=== PATIENT | male | born 1985 | race Caucasian/White ===

== ENCOUNTER 2018-02-24 19:40 | Emergency (ER) | payer SELFPAY ==
[~2018-02-24] VITALS: Ht 188 cm; Wt 83.9 kg
[2018-02-24 19:50] VITALS: BP 133/93
[2018-02-24 21:31] LABS: APPEARANCE,URINE Clear (CLEAR); BILIRUBIN,URINE Negative (NEGATIVE); BLOOD, URINE Negative Ery/uL (NEGATIVE); COLOR,URINE Light yellow (YELLOW); KETONES,URINE Negative (NEGATIVE); LEUKOCYTE ESTERASE ,URINE Negative (NEGATIVE); NITRITE, URINE Negative (NEGATIVE); PROTEIN,URINE Negative (NEGATIVE); UGLUCOSE Negative (NEGATIVE); UROBILINOGEN,URINE 0.2 EU/dL (0.2)
== END 2018-02-24 22:08 | disposition left against medical advice (07) ==
LOC: ER 19:45
DX: R10.32 Left lower quadrant pain (principal)
CPT/HCPCS: 81000-TC; A4606; Z7610